=== PATIENT | male | born 1995 | race Caucasian/White ===

== ENCOUNTER 2017-10-01 21:34 | Emergency (ER) | payer MEDICAID ==
[~2017-10-01] VITALS: Ht 182.9 cm; Wt 63.5 kg
[2017-10-01 21:35] VITALS: BP_SYST 136
[2017-10-01] MEDS ORDERED: NACL 0.9% 1,000 ML IV ONE (22:30)
[2017-10-01] MEDS ORDERED: ONDANSETRON 4 MG ODT TAB PO ONE (22:30)
[2017-10-01 23:19] LABS: CALCIUM 9.9 mg/dL (8.4-11.0); CREATININE 0.88 mg/dL (0.55-1.30); HEMATOCRIT 39.9 % (36-54); HEMOGLOBIN 13.9 g/dL (14.0-18.0); MEAN CORPUSCULAR HEMOGLOBIN 32 pg (27-31); MEAN CORPUSCULAR HGB CONC 35 % (32-36); MEAN CORPUSCULAR VOLUME 92 fL (79.0-98.0); PLATELET COUNT (AUTO) 394 K/uL (130-430); POTASSIUM 3.6 mmol/L (3.5-5.1); RED BLOOD CELL COUNT(AUTO) 4.35 MIL/uL (4.2-6.2); RED CELL DISTRIBUTION WIDTH 11.7 % (9.0-15.0); WHITE BLOOD COUNT (AUTO) 14.7 K/uL (4.8-10.8)
[2017-10-01 23:26] LABS: ALBUMIN 4.8 g/dL (3.4-4.8); TOTAL BILIRUBIN 0.9 mg/dL (0.0-1.0)
[2017-10-01 23:41] LABS: BAND % (MANUAL) 5 % (0-6); BASOPHILS % (MANUAL) 0 % (0-2); EOSINOPHILS % (MANUAL) 0 % (0-7); LYMPHOCYTES % (MANUAL) 7 % (20-46); MONOCYTES % (MANUAL) 11 % (0-11)
[2017-10-02 00:25] VITALS: BP_SYST 130
== END 2017-10-02 00:25 | disposition home or self-care (01) ==
LOC: SED 21:34 → EDBD 21:34 → SED 10-02 00:25
DX: T62.8X1A Toxic effect of other specified noxious substances eaten as food, accidental (unintentional), initial encounter (principal); R10.84 Generalized abdominal pain; R11.10 Vomiting, unspecified; F12.90 Cannabis use, unspecified, uncomplicated; Y92.89 Other specified places as the place of occurrence of the external cause
CPT/HCPCS: 36415; 80053; 85007; 85027; 96360; 99284; J7030; Q0162

== ENCOUNTER 2017-10-03 11:12 | Emergency (ER) | payer MEDICAID ==
[~2017-10-03] VITALS: Ht 182.9 cm; Wt 65.8 kg
[2017-10-03 11:18] VITALS: BP_SYST 150
[2017-10-03] MEDS: ONDANSETRON 4 MG ODT TAB PO ONE (11:45)
[2017-10-03] MEDS: MAG HYDROX/AL HYDROX/SIMETH 30 ML, BELLADONNA ALKALOIDS/PHENOBARB 10 ML, LIDOCAINE VISC... PO ONE ×3 (11:45)
[2017-10-03] MEDS: PROMETHAZINE HCL 50 MG/ML AMP IM ONE (12:06)
[2017-10-03] MEDS: KETOROLAC TROMETHAMINE 60 MG/2 ML VIAL IM ONE (12:06)
[2017-10-03 12:37] VITALS: BP_SYST 140
== END 2017-10-03 12:37 | disposition home or self-care (01) ==
LOC: SED 11:12
DX: R10.13 Epigastric pain (principal); R11.2 Nausea with vomiting, unspecified; R19.7 Diarrhea, unspecified; R03.0 Elevated blood-pressure reading, without diagnosis of hypertension
CPT/HCPCS: 96372; 99284; J1885; J2001; J2550; Q0162